=== PATIENT | male | born 1985 | race Two or more races ===

== ENCOUNTER 2019-06-16 11:08 | Emergency (ER) | payer MEDICAID ==
[~2019-06-16] VITALS: Ht 180.3 cm; Wt 88.0 kg
[2019-06-16] MEDS ORDERED: HYDROCODONE/ACETAMINOPHEN 5/325MG TABLET PO ONE (13:15)
[2019-06-16 15:15] VITALS: BP 132/75
== END 2019-06-16 15:27 | disposition home or self-care (01) ==
LOC: ER 11:51
DX: S01.81XA Laceration without foreign body of other part of head, initial encounter (principal); S16.1XXA Strain of muscle, fascia and tendon at neck level, initial encounter; S05.10XA Contusion of eyeball and orbital tissues, unspecified eye, initial encounter; S09.8XXA Other specified injuries of head, initial encounter; S02.2XXA Fracture of nasal bones, initial encounter for closed fracture; Y09 Assault by unspecified means; Y93.89 Activity, other specified; Y92.9 Unspecified place or not applicable
CPT/HCPCS: 70486; 99284

== ENCOUNTER 2019-07-07 11:39 | Emergency (ER) | payer MEDICAID ==
[~2019-07-07] VITALS: Ht 182.9 cm; Wt 84.0 kg
[2019-07-07 13:12] VITALS: BP 142/86
== END 2019-07-07 13:14 | disposition home or self-care (01) ==
LOC: ER 11:39
DX: K04.7 Periapical abscess without sinus (principal); R68.84 Jaw pain
CPT/HCPCS: 99283

== ENCOUNTER 2019-12-31 09:11 | Emergency (ER) | payer MEDICAID ==
[~2019-12-31] VITALS: Ht 182.9 cm; Wt 86.0 kg
[2019-12-31 09:28] VITALS: BP 133/83
[2019-12-31] MEDS ORDERED: IBUPROFEN 600MG TABLET PO ONE (10:30)
== END 2019-12-31 11:55 | disposition home or self-care (01) ==
LOC: ER 09:40
DX: S70.01XA Contusion of right hip, initial encounter (principal); S60.221A Contusion of right hand, initial encounter; V18.0XXA Pedal cycle driver injured in noncollision transport accident in nontraffic accident, initial encounter; Y93.55 Activity, bike riding; Y92.488 Other paved roadways as the place of occurrence of the external cause
CPT/HCPCS: 73130; 73502; 99284

== ENCOUNTER 2020-04-09 10:02 | Emergency (ER) | payer MEDICAID ==
[~2020-04-09] VITALS: Ht 182.9 cm; Wt 91.0 kg
[2020-04-09] MEDS ORDERED: IBUPROFEN 600MG TABLET PO ONE (11:15)
[2020-04-09 12:30] VITALS: BP 144/82
== END 2020-04-09 12:32 | disposition home or self-care (01) ==
LOC: ER 10:02
DX: M79.642 Pain in left hand (principal); M79.641 Pain in right hand; Y04.0XXA Assault by unarmed brawl or fight, initial encounter; Y93.89 Activity, other specified; Y92.9 Unspecified place or not applicable
CPT/HCPCS: 73130; 99283